=== PATIENT | female | born 1975 | race Caucasian/White ===

== ENCOUNTER 2020-05-26 11:06 | Outpatient (CLI) | payer OTHER ==
--- NOTE | 2020-06-02 08:24 | Mammography Report ---
BILATERAL DIGITAL SCREENING MAMMOGRAM 3D/2D: 05/26/2020 CLINICAL: Routine screening. Comparison is made to exam dated: [facility] The tissue of both breasts is heterogeneously dense. This may lower the sensitivity of mammography. No significant masses, calcifications, or other findings are seen in either breast. There has been no significant interval change. IMPRESSION: NEGATIVE There is no mammographic evidence of malignancy. A 1 year screening mammogram is recommended. This exam was interpreted at Station ID: [id number]. NOTE: For mammograms, a report in lay terms will be sent to the patient. Approximately 15% of breast malignancies will not be visualized mammographically. In the management of a palpable breast mass, a negative mammogram must not discourage biopsy of a clinically suspicious lesion. Electronically Signed By: Terrence Mancia M.D. [facility] [place]:06/02/2020 08:11:43 ACR BI-RADS Category 1: Negative 3341F PARENCHYMAL PATTERN: (D) - The breast(s) demonstrate(s) heterogeneously dense fibroglandular angeli wilkinson. BI-RADS CATEGORY: (1) - 1 RECOMMENDATION: (ANNUAL) - Recommend routine annual screening mammography. [id number] 1 year screening LATERALITY: (B)
== END 2020-05-26 11:07 | disposition home or self-care (01) ==
LOC: DI.N 11:06
PROVIDERS: ATTEND Nurse Practitioner
DX: Z12.31 Encounter for screening mammogram for malignant neoplasm of breast (principal)
CPT/HCPCS: 77063; 77067

== ENCOUNTER 2020-09-02 08:00 | Outpatient (CLI) | payer OTHER ==
[2020-09-02 13:56] LABS: BILIRUBIN,URINE NEGATIVE (NEGATIVE); GLUCOSE, URINE (UA) NEGATIVE (NEGATIVE); KETONES,URINE (UA) NEGATIVE (NEGATIVE); LEUKOCYTE ESTERASE, URINE SMALL (NEGATIVE); NITRITE,URINE NEGATIVE (NEGATIVE); OCCULT BLOOD,URINE NEGATIVE (NEGATIVE); PROTEIN,URINE NEGATIVE (NEGATIVE); UROBILINOGEN,URINE 0.2 (NORMAL) E.U./dL (NORMAL)
[2020-09-02 14:00] LABS: CLARITY,URINE HAZY (CLEAR)
[2020-09-02 14:24] LABS: BACTERIA,URINE Few /HPF (None Seen); RBC,URINE None Seen /HPF (0-5); SQUAMOUS EPITHELIAL CELL,UR RARE Squamous (<= Few)
== END 2020-09-02 23:59 | disposition home or self-care (01) ==
LOC: LAB.R 08:00
PROVIDERS: ATTEND Nurse Practitioner
DX: N30.00 Acute cystitis without hematuria (principal)
CPT/HCPCS: 81001; 81003; 87077; 87086; 87181

== ENCOUNTER 2021-06-14 10:48 | Outpatient (CLI) | payer OTHER ==
--- NOTE | 2021-06-15 13:24 | Mammography Report ---
BILATERAL DIGITAL SCREENING MAMMOGRAM 3D/2D: 06/14/2021 CLINICAL: Routine screening. Comparison is made to exams dated: 05/26/2020 mammogram - [facility] and 03/15/2016 m ammogram - [facility]. The tissue of both breasts is heterogeneously dense. This may lo wer the sensitivity of mammography. No significant masses, calcifications, or other findings are seen in either breast. There has been no significant interval change. IMPRESSION: NEGATIVE There is no mammographic evidence of malignancy. A 1 year screening mammogram is recommended. This exam was interpreted at Station ID: [id number]. NOTE: For mammograms, a report in lay terms will be sent to the patient. Approximately 15% of breast malignancies will not be visualized mammographically. In the management of a palpable breast mass, a negative mammogram must not discourage biopsy of a clinically suspicious lesion. Electronically Signed By: Parth Mauricio acr/penrad:06/14/2021 11:52:09 ACR BI-RADS Category 1: Negative 3341F PARENCHYMAL PATTERN: (D) - The breast(s) demonstrate(s) heterogeneously dense fibroglandular angeli wilkinson. BI-RADS CATEGORY: (1) - 1 RECOMMENDATION: (ANNUAL) - Recommend routine annual screening mammography. [id number] 1 year screening LATERALITY: (B)
== END 2021-06-14 10:49 | disposition home or self-care (01) ==
LOC: DI.N 10:48
DX: Z12.31 Encounter for screening mammogram for malignant neoplasm of breast (principal)

== ENCOUNTER 2021-11-17 08:03 | Outpatient (CLI) | payer OTHER ==
[2021-11-17 14:38] LABS: BASOPHILS % (AUTO) 0.5 %; EOSINOPHILS # (AUTO) 0.5 10^3/uL (0.0-0.7); EOSINOPHILS % (AUTO) 5.7 %; HCT - HEMATOCRIT 43.4 % (37.0-47.0); HGB - HEMOGLOBIN 13.9 g/dL (12.0-16.0); LYMPHOCYTES # (AUTO) 2.7 10^3/uL (1.5-3.5); LYMPHOCYTES % (AUTO) 32.7 %; MEAN CORPUSCULAR HEMOGLOBIN 28.2 pg (27.0-31.0); MEAN PLATELET VOLUME 8.9 fL (7.9-10.8); MONOCYTES # (AUTO) 0.9 10^3/uL (0.0-1.0); MONOCYTES % (AUTO) 10.8 %; NEUTROPHILS # (AUTO) 4.2 10^3/uL (1.5-6.6); NEUTROPHILS % (AUTO) 50.1 %; PLT - PLATELET COUNT 394 10^3/uL (130-450); RED BLOOD COUNT 4.93 10^6/uL (4.20-5.40); RED CELL DISTRIBUTION WIDTH 14.6 % (12.0-15.0); WHITE BLOOD COUNT 8.4 x10^3/uL (4.8-10.8)
[2021-11-17 14:58] LABS: THYROID STIMULATING HORMONE 3.2 uIU/mL (0.34-5.60)
[2021-11-17 15:06] LABS: ALBUMIN 4.1 g/dL (3.2-5.5); ALBUMIN/GLOBULIN RATIO 1.2 (1.0-2.2); ALKALINE PHOSPHATASE 61 IU/L (42-121); ALT ALANINE AMINOTRANSFERASE 48 IU/L (10-60); AST ASPARTATE AMINOTRANSFERASE 28 IU/L (10-42); BUN - BLOOD UREA NITROGEN 11 mg/dL (6-20); CARBON DIOXIDE - CO2 28 mmol/L (21-32); CHLORIDE 99 mmol/L (101-111); CHOL/HDL RATIO 3.3 (<4.4); CHOLESTEROL 251 mg/dL; CREATININE 0.9 mg/dL (0.4-1.0); GFR - MDRD 67 (>89); GLUCOSE 99 mg/dL (70-100); HDL CHOLESTEROL 76 mg/dL; LDL CHOLESTEROL,CALCULATED 145 mg/dL; LDL/HDL RATIO 1.9 (<4.4); POTASSIUM 4.3 mmol/L (3.5-5.0); SODIUM 136 mmol/L (135-145); TOTAL PROTEIN 7.4 g/dL (6.7-8.2); TRIGLYCERIDES 150 mg/dL; VLDL CHOLESTEROL 30 mg/dL
== END 2021-11-17 08:04 | disposition home or self-care (01) ==
LOC: LAB.N 08:03
PROVIDERS: ATTEND Physician Assistant Medical
DX: Z00.00 Encounter for general adult medical examination without abnormal findings (principal)
CPT/HCPCS: 36415; 80053; 80061; 83721; 84443; 85025

== ENCOUNTER 2022-04-23 16:41 | Outpatient (CLI) | payer OTHER ==
--- NOTE | 2022-04-24 15:50 | CT Report ---
PROCEDURE: LUMBAR SPINE WO INDICATIONS: LOW BACK PAIN TECHNIQUE: Noncontrast 3 mm thick sections acquired from the T12 level to the sacrum. Sagittal and coronal refo rmats were constructed. For radiation dose reduction, the following was used: automated exposure co ntrol, adjustment of mA and/or kV according to patient size. COMPARISON: None. FINDINGS: Normal lumbar vertebral body height and alignment. No suspicious lytic or blastic osseous lesion. Intervertebral disc spaces are congruent and maintained. At L5-S1 there is a disc extrusion in the ri ght paracentral and subarticular zones which likely impinges upon the descending right S1 nerve roots (series 3 image 73 and series 7 image 27). No significant degenerative changes otherwise. No spinal canal or neural foraminal narrowing elsewhere. Normal appearance of the regional unenhanced soft tissues. IMPRESSION: Disc extrusion in the right L5-S1 subarticular zone likely impinging upon the descending right S1 ner ve roots. Reviewed by: Burak Elam MD on 04/24/2022 3:48 PM PDT Approved by: Burak Elam MD on 04/24/2022 3:48 PM PDT Station ID: [id number]
== END 2022-04-23 16:42 | disposition home or self-care (01) ==
LOC: DI 16:41
PROVIDERS: ATTEND Nurse Practitioner
DX: M51.27 Other intervertebral disc displacement, lumbosacral region (principal)

== ENCOUNTER 2022-11-19 10:54 | Outpatient (CLI) | payer OTHER ==
--- NOTE | 2022-11-20 12:23 | Mammography Report ---
BILATERAL DIGITAL SCREENING MAMMOGRAM 3D/2D: 11/19/2022 CLINICAL: Routine screening. Comparison is made to exams dated: 06/14/2021 mammogram, 05/26/2020 mammogram - [facility], and 03/15/2016 mammogram - [facility]. Both breasts are heterogeneously dense, which may obscure small masses (category c / 51-75% glandular tissue). No significant masses, calcifications, or other findings are seen in either breast. There has been no significant interval change. IMPRESSION: NEGATIVE There is no mammographic evidence of malignancy. A 1 year screening mammogram is recommended. Based on the Tyrer Cuzick model (a risk assessment model) the patients lifetime risk is 13.7% and he r 10 year risk is 3.1%. According to the ACR, ACS, and NCCN guidelines, an annual breast MRI exam emery ng with mammogram is recommended if the patients lifetime risk is 20% or greater. This exam was interpreted at Station ID: [id number]. NOTE: For mammograms, a report in lay terms will be sent to the patient. Approximately 15% of breast malignancies will not be visualized mammographically. In the management of a palpable breast mass, a negative mammogram must not discourage biopsy of a clinically suspicious lesion. Electronically Signed By: Terrence Mancia M.D. [facility] – [place]rad:11/19/2022 11:44:11 ACR BI-RADS Category 1: Negative 3341F PARENCHYMAL PATTERN: (D) - The breast(s) demonstrate(s) heterogeneously dense fibroglandular angeli wilkinson. BI-RADS CATEGORY: (1) - 1 RECOMMENDATION: (ANNUAL) - Recommend routine annual screening mammography. [id number] 1 year screening LATERALITY: (B)
== END 2022-11-19 10:55 | disposition home or self-care (01) ==
LOC: DI.N 10:54
DX: Z12.31 Encounter for screening mammogram for malignant neoplasm of breast (principal)

== ENCOUNTER 2023-11-21 08:00 | Outpatient (CLI) | payer BC | END 2023-11-21 23:59 | disposition home or self-care (01) | LOC: LAB.N 08:00 | PROVIDERS: ATTEND Physician Assistant Medical | DX: L03.90 Cellulitis, unspecified (principal) | CPT/HCPCS: 87640 ==

== ENCOUNTER 2023-11-22 07:57 | Outpatient (CLI) | payer BC ==
[2023-11-22 12:11] LABS: BASOPHILS % (AUTO) 0.2 %; EOSINOPHILS # (AUTO) 0.2 10^3/uL (0.0-0.7); EOSINOPHILS % (AUTO) 3.1 %; HCT - HEMATOCRIT 43.5 % (37.0-47.0); HGB - HEMOGLOBIN 13.6 g/dL (12.0-16.0); LYMPHOCYTES # (AUTO) 2.6 10^3/uL (1.5-3.5); LYMPHOCYTES % (AUTO) 41.5 %; MEAN CORPUSCULAR HEMOGLOBIN 27.8 pg (27.0-31.0); MEAN CORPUSCULAR HGB CONC 31.3 g/dL (32.0-36.0); MEAN CORPUSCULAR VOLUME 88.8 fL (81.0-99.0); MEAN PLATELET VOLUME 9.1 fL (7.9-10.8); MONOCYTES # (AUTO) 0.7 10^3/uL (0.0-1.0); MONOCYTES % (AUTO) 10.2 %; NEUTROPHILS # (AUTO) 2.9 10^3/uL (1.5-6.6); NEUTROPHILS % (AUTO) 44.8 %; PLT - PLATELET COUNT 338 10^3/uL (130-450); RED CELL DISTRIBUTION WIDTH 13.9 % (12.0-15.0); WHITE BLOOD COUNT 6.4 x10^3/uL (4.8-10.8)
[2023-11-22 13:38] LABS: THYROID STIMULATING HORMONE 2.79 uIU/mL (0.34-5.60)
[2023-11-22 14:23] LABS: ALBUMIN 4.5 g/dL (3.2-5.5); ALBUMIN/GLOBULIN RATIO 1.6 (1.0-2.2); ALKALINE PHOSPHATASE 85 IU/L (42-121); ALT ALANINE AMINOTRANSFERASE 64 IU/L (10-60); AST ASPARTATE AMINOTRANSFERASE 39 IU/L (10-42); BILIRUBIN,TOTAL 0.6 mg/dL (0.2-1.0); BUN - BLOOD UREA NITROGEN 14 mg/dL (6-20); CALCIUM 9.8 mg/dL (8.5-10.3); CARBON DIOXIDE - CO2 28 mmol/L (21-32); CHLORIDE 104 mmol/L (101-111); CHOL/HDL RATIO 3.6 (<4.4); CHOLESTEROL 281 mg/dL; GFR - MDRD 59 (>89); GLUCOSE 104 mg/dL (74-104); HDL CHOLESTEROL 77 mg/dL; LDL CHOLESTEROL,CALCULATED 181 mg/dL; LDL/HDL RATIO 2.4 (<4.4); POTASSIUM 4.2 mmol/L (3.5-4.5); SODIUM 139 mmol/L (135-145); TOTAL PROTEIN 7.3 g/dL (6.4-8.9); TRIGLYCERIDES 116 mg/dL (48-352); VLDL CHOLESTEROL 23 mg/dL
== END 2023-11-22 07:58 | disposition home or self-care (01) ==
LOC: LAB.N 07:57
PROVIDERS: ATTEND Physician Assistant Medical
DX: Z00.00 Encounter for general adult medical examination without abnormal findings (principal)
CPT/HCPCS: 36415; 80053; 80061; 83721; 84443; 85025

== ENCOUNTER 2023-11-25 10:00 | Outpatient (CLI) | payer BC ==
--- NOTE | 2023-11-26 09:34 | Mammography Report ---
BILATERAL DIGITAL SCREENING MAMMOGRAM 3D/2D: 11/25/2023 CLINICAL: Routine screening. Comparison is made to exams dated: 11/19/2022 mammogram, 06/14/2021 mammogram, 05/26/2020 mammogram - [facility], and 03/15/2016 mammogram - [facility]. Both breasts are heterogeneously dense, which may obscure small masses (category c / 51-75% glandular tissue). No significant masses, calcifications, or other findings are seen in either breast. There has been no significant interval change. IMPRESSION: NEGATIVE There is no mammographic evidence of malignancy. A 1 year screening mammogram is recommended. Based on the Tyrer Cuzick model (a risk assessment model) the patient's lifetime risk is 12.6% and he r 10 year risk is 3.0%. According to the ACR, ACS, and NCCN guidelines, an annual breast MRI exam emery ng with mammogram is recommended if the patient's lifetime risk is 20% or greater. This exam was interpreted at Station ID: [id number]. NOTE: For mammograms, a report in lay terms will be sent to the patient. Approximately 15% of breast malignancies will not be visualized mammographically. In the management of a palpable breast mass, a negative mammogram must not discourage biopsy of a clinically suspicious lesion. Electronically Signed By: Kelsi calle/radha:11/25/2023 17:06:46 ACR BI-RADS Category 1: Negative 3341F PARENCHYMAL PATTERN: (D) - The breast(s) demonstrate(s) heterogeneously dense fibroglandular angeli wilkinson. BI-RADS CATEGORY: (1) - 1 Mammogram [id number] 1 year screening LATERALITY: (B)
== END 2023-11-25 10:01 | disposition home or self-care (01) ==
LOC: DI.N 10:00
DX: Z12.31 Encounter for screening mammogram for malignant neoplasm of breast (principal); R92.333 Mammographic heterogeneous density, bilateral breasts

== ENCOUNTER 2023-11-29 08:12 | Outpatient (CLI) | payer BC ==
--- NOTE | 2023-11-29 12:06 | CT Report ---
PROCEDURE: Abdomen WO INDICATIONS: ABD PAIN, family history of pancreas cancer CONTRAST: None TECHNIQUE: After the administration of oral contrast, 5 mm thick sections acquired from the diaphragms to the il iac crests. 5 mm coronal and sagittal reformats were then performed. For radiation dose reduction, the following was used: automated exposure control, adjustment of mA and/or kV according to patient size. COMPARISON: None FINDINGS: Image quality: Diagnostic, however limited by lack of intravenous contrast Lower chest: Lung bases appear unremarkable. Normal heart size Liver: Unremarkable Gallbladder and biliary system: Unremarkable, nondilated Pancreas: No obvious ductal dilation. Spleen: Unremarkable, not enlarged Adrenals: No discrete nodules Kidneys: No contour deforming mass. No hydronephrosis Vessels and lymph nodes: No abdominal aortic aneurysm. Mild nonspecific fat stranding is seen around the celiac axis, no discrete fluid however. No pathologic lymph nodes by size criteria. Bowel and peritoneum: No evidence of small bowel obstruction. No drainable abscess in the field-of-vi ew. Body wall: Unremarkable. Tiny fat-containing umbilical hernia. Pelvis: Not included Bones: No acute or suspicious abnormality. IMPRESSION: On this limited noncontrast study, there is no acute abdominal abnormality. No obvious ductal dilatio n of the pancreas. Consider contrast enhanced CT or MRI to further evaluate if there is sufficient clinical concern. Nonspecific mild fat stranding is seen around the celiac axis, without discrete fluid collection. Aga in this is not well evaluated without contrast. Reviewed by: Alejandro Gilbert MD on 11/29/2023 12:04 PM PST Approved by: Alejandro Gilbert MD on 11/29/2023 12:04 PM PST Station ID: [id number]
== END 2023-11-29 08:13 | disposition home or self-care (01) ==
LOC: DI 08:12
PROVIDERS: ATTEND Physician Assistant Medical
DX: R10.84 Generalized abdominal pain (principal); Z80.8 Family history of malignant neoplasm of other organs or systems; Z80.0 Family history of malignant neoplasm of digestive organs

== ENCOUNTER 2024-02-24 08:00 | Outpatient (CLI) | payer BC ==
[2024-02-24 18:22] LABS: KETONES,URINE (UA) NEGATIVE (NEGATIVE); OCCULT BLOOD,URINE NEGATIVE (NEGATIVE)
[2024-02-24 18:29] LABS: CLARITY,URINE HAZY (CLEAR)
[2024-02-24 18:41] LABS: RBC,URINE 0-5 /HPF (0-5); SQUAMOUS EPITHELIAL CELL,UR NONE SEEN (<= Few)
[2024-02-24 18:42] LABS: BACTERIA,URINE Few /HPF (None Seen)
== END 2024-02-24 23:59 | disposition home or self-care (01) ==
LOC: LAB.WCP 08:00
DX: R30.0 Dysuria (principal)
CPT/HCPCS: 81001